=== PATIENT | female | born 1965 | race American Indian/Alaskan Native ===

== ENCOUNTER 2019-03-11 01:14 | Emergency (ER) | payer MEDICAID ==
[2019-03-11 01:30] VITALS: BP 113/77
--- NOTE | 2019-03-11 02:08 | Emergency Department Report ---
ED Extremity Problem HPI - General Chief complaint: Abdominal Pain Stated complaint: SIDE PAIN Time Seen by Provider: 03/11/19 01:55 Source: patient Mode of arrival: Ambulatory Limitations: No Limitations - History of Present Illness Initial comments: Patient is a 54-year-old female presents emergency room with complaints of left shoulder pain that began a week ago. She states that it feels like she "pulled a muscle." She states that she picked up her niece last week. Patient denies any fall or injury. She denies any numbness or weakness. She states she has a past history of COPD and asthma. She denies any allergies to medications. - Related Data Home Medications Medication Instructions Recorded Confirmed Last Taken Amlodipine Besylate 1 tab PO DAILY 02/15/16 02/15/16 Unknown Lisinopril/Hydrochlorothiazide 1 tab PO DAILY 02/15/16 02/15/16 Unknown [Lisinopril-Hctz 20-12.5 mg Tab] Previous Rx's Medication Instructions Recorded Last Taken Type Albuterol Sulfate [Ventolin HFA] 1 puff IH Q6H #1 hfa.aer.ad 02/15/16 Unknown Rx predniSONE [Deltasone] 20 mg PO QDAY #5 tab 02/15/16 Unknown Rx Baclofen [Lioresal] 10 mg PO QHS PRN #10 tab 03/11/19 Unknown Rx Naproxen [EC-Naproxen] 500 mg PO BID PRN #14 tablet. 03/11/19 Unknown Rx Allergies Allergy/AdvReac Type Severity Reaction Status Date / Time No Known Allergies Allergy Verified 01/07/14 16:06 ED Review of Systems ROS: Stated complaint: SIDE PAIN Other details as noted in HPI Comment: All other systems reviewed and negative ED Past Medical Hx - Past Medical History Previous Medical History?: Yes Hx Hypertension: Yes Hx Congestive Heart Failure: No Hx Diabetes: No Hx Asthma: Yes (has been intubated multiple times) Hx COPD: Yes Additional medical history: NO previous intubations, - Surgical History Past Surgical History?: Yes Additional Surgical History: tubal ligation; sinus surgery toncillectomy - Social History Smoking Status: Never Smoker Substance Use Type: Alcohol, Marijuana - Medications Home Medications: Home Medications Medication Instructions Recorded Confirmed Last Taken Type Albuterol Sulfate [Ventolin HFA] 1 puff IH Q6H #1 hfa.aer.ad 02/15/16 Unknown Rx Amlodipine Besylate 1 tab PO DAILY 02/15/16 02/15/16 Unknown History Lisinopril/Hydrochlorothiazide 1 tab PO DAILY 02/15/16 02/15/16 Unknown History [Lisinopril-Hctz 20-12.5 mg Tab] predniSONE [Deltasone] 20 mg PO QDAY #5 tab 02/15/16 Unknown Rx Baclofen [Lioresal] 10 mg PO QHS PRN #10 tab 03/11/19 Unknown Rx Naproxen [EC-Naproxen] 500 mg PO BID PRN #14 tablet. 03/11/19 Unknown Rx ED Physical Exam - General Limitations: No Limitations General appearance: alert, in no apparent distress, other (had to wake up patient to examine her) - Head Head exam: Present: atraumatic, normocephalic - Eye Eye exam: Present: normal appearance - ENT ENT exam: Present: mucous membranes moist - Neck Neck exam: Present: normal inspection, full ROM. Absent: tenderness - Respiratory Respiratory exam: Present: normal lung sounds bilaterally. Absent: respiratory distress, wheezes, rales, rhonchi, stridor, chest wall tenderness, accessory muscle use, decreased breath sounds, prolonged expiratory - Cardiovascular Cardiovascular Exam: Present: regular rate, normal rhythm, normal heart sounds. Absent: systolic murmur, diastolic murmur, rubs, gallop - Extremities Exam Extremities exam: Present: other (mild TTP over the left trapezius on the anterior and posterior side, FROM of the entire LUE with no difficulty at all, neurovascularly intact, no joint laxity) - Back Exam Back exam: Present: normal inspection, full ROM. Absent: paraspinal tenderness, vertebral tenderness - Neurological Exam Neurological exam: Present: alert, oriented X3 - Psychiatric Psychiatric exam: Present: normal affect, normal mood - Skin Skin exam: Present: warm, dry, intact ED Course Vital Signs 03/11/19 01:23 Temperature 97.6 F Pulse Rate 96 H Respiratory 12 Rate Blood Pressure 113/77 O2 Sat by Pulse 97 Oximetry ED Medical Decision Making - Medical Decision Making Patient is a 54-year-old female presents emergency room with complaints of left shoulder pain that began a week ago. She states that it feels like she "pulled a muscle." She states that she picked up her niece last week. Patient denies any fall or injury. She denies any numbness or weakness. She states she has a past history of COPD and asthma. She denies any allergies to medications. VSS. on exam: mild TTP over the left trapezius on the anterior and posterior side, FROM of the entire LUE with no difficulty at all, neurovascularly intact, no joint laxity. Examination consistent with muscle strain. Patient given prescription for baclofen and naproxen. advised pt to please take medication as prescribed. Do not drive or operate heavy machinery while taking muscle relaxer. May use ice pack, heating pad, rest, epsom salt bath. Follow-up with a primary care doctor and an orthopedic doctor in the next 2-3 days. Return to the emergency room for any new or worsening symptoms - Differential Diagnosis strain, sprain, tendonitis, rotator cuff injury, DJD, arthritis Critical care attestation.: If time is entered above; I have spent that time in minutes in the direct care of this critically ill patient, excluding procedure time. ED Disposition Clinical Impression: Left shoulder pain Qualifiers: Chronicity: acute Qualified Code(s): M25.512 - Pain in left shoulder Strain of left trapezius muscle Qualifiers: Encounter type: initial encounter Qualified Code(s): S46.812A - Strain of other muscles, fascia and tendons at shoulder and upper arm level, left arm, initial encounter Disposition: TO HOME OR SELFCARE Is pt being admited?: No Does the pt Need Aspirin: No Condition: Stable Instructions: Muscle Strain (ED) Additional Instructions: Please take medication as prescribed. Do not drive or operate heavy machinery while taking muscle relaxer. May use ice pack, heating pad, rest, epsom salt bath. Follow-up with a primary care doctor and an orthopedic doctor in the next 2-3 days. Return to the emergency room for any new or worsening symptoms Prescriptions: Baclofen [Lioresal] 10 mg PO QHS PRN #10 tab PRN Reason: Muscle Spasm Naproxen [EC-Naproxen] 500 mg PO BID PRN #14 tablet.dr NOLAN Reason: pain Referrals: your, primary care doctor [Other] - 2-3 Days CATA BIGGS MD [Staff Physician] - 2-3 Days Time of Disposition: 02:06 Print Language: PORTUGUESE
== END 2019-03-11 02:18 | disposition home or self-care (01) ==
LOC: ED 01:14
DX: S46.812A Strain of other muscles, fascia and tendons at shoulder and upper arm level, left arm, initial encounter (principal); I10 Essential (primary) hypertension; J44.1 Chronic obstructive pulmonary disease with (acute) exacerbation; F12.10 Cannabis abuse, uncomplicated; Z98.51 Tubal ligation status; Z90.89 Acquired absence of other organs; Z79.899 Other long term (current) drug therapy; X58.XXXA Exposure to other specified factors, initial encounter; Y93.89 Activity, other specified; Y92.89 Other specified places as the place of occurrence of the external cause; Y99.8 Other external cause status
CPT/HCPCS: 99282